=== PATIENT | female | born 1990 | race African-American/Black ===

== ENCOUNTER 2021-10-04 23:57 | Emergency (ER) | payer OTHER ==
[2021-10-05 03:09] LABS: Absolute Lymphocytes (CBC) 1.5 K/uL (0.7-4.9); Basophils % 0.2 % (0-1.3); Hematocrit 24.5 % (36.0-45.0); Lymphocytes % 22.8 % (15.3-44.8); MPV 7.1 fL (7.6-11.3); Protime INR 1.05; RBC Red Blood Cell Count 2.91 M/uL (3.86-4.86)
[2021-10-05 03:40] LABS: ALT/SGPT 38 U/L (12-78); AST/SGOT 31 U/L (15-37); Alkaline Phosphatase 115 U/L (45-117); BUN Blood Urea Nitrogen 10 mg/dL (7-18); Bicarbonate 25 mmol/L (21-32); Bilirubin Direct 0.1 mg/dL (0-0.2); Bilirubin Total 0.3 mg/dL (0.2-1.0); Glucose Level 91 mg/dL (74-106); Magnesium 2.2 mg/dL (1.8-2.4); Potassium 3.7 mmol/L (3.5-5.1); Sodium Level 147 mmol/L (136-145)
[2021-10-05 04:01] LABS: NT PRO-BNP 736 pg/mL (<125); Troponin (Emerg Dept Use Only) < 0.02 ng/mL (0.0-0.045)
[2021-10-05] MEDS ORDERED: ACETAMINOPHEN 500 MG TAB ONE (04:28)
[2021-10-05 04:35] LABS: Urine Blood 2+ (Negative); Urine Glucose Negative (Negative); Urine Protein 1+ (Negative); Urine Specific Gravity >=1.030 (1.005-1.030)
[2021-10-05 04:48] LABS: Urine Specific Gravity/Preg >1.030 (1.005-1.030)
[2021-10-05 05:04] LABS: Urine Bacteria 20-50 /HPF (<20); Urine Mucus 2+ /HPF (NONE SEEN)
[2021-10-05] MEDS ORDERED: HYDRALAZINE HCL 20 MG/ML VIAL ONE ×2 (05:10→06:07)
[2021-10-05] MEDS ORDERED: NIFEdipine 10 MG CAP ONE (06:40)
[2021-10-05] MEDS ORDERED: Magnesium Sulfate 2gm IVPB 2 G/50 ML BAG IV ONE ×3 (06:45→07:55)
--- NOTE | 2021-10-05 07:00 | EDPHYS ---
Physician Documentation [facility] Name: Nanette Copeland Age: 31 yrs Sex: Female : 1990 Arrival Date: 10/05/2021 Time: 00:08 Bed 4 Private MD: ED Physician Dash Landaverde HPI: 10/05 02:37 This 31 yrs old Black Female presents to ER via Ambulatory with complaints of High mh7 Blood Pressure. 02:37 The patient has elevated blood pressure and discovered this at home, with a home device.mh7 02:37 Onset: The symptoms/episode began/occurred 3 day(s) ago. mh7 02:37 Modifying factors: The symptoms are aggravated by Nothing, The symptoms are alleviated mh7 by prescription meds, Labetalol. Associated signs and symptoms: Pertinent negatives: chest pain, dizziness, dyspnea, headache, lightheadedness, nausea, visual changes, vomiting, weakness. Severity of symptoms: At its worst the blood pressure was 180 mm Hg, in the emergency department the blood pressure is improved, moderately. Patient has a history of hypertension. She reports during her her doctor switched her medication to labetalol. She gave about 1 week ago but her blood pressure has been increasing since then. A few days ago her doctor increased her labetalol dose. She has been monitoring her blood pressure at home per her doctors instructions and it was elevated tonight so she called the nurse line and was told to come to the ED for evaluation.. 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 - Social history:: Smoking status: Patient/guardian denies using tobacco. ROS: 02:37 Constitutional: Negative for fever, chills, and weight loss, Eyes: Negative for injury, mh7 pain, redness, and discharge, ENT: Negative for injury, pain, and discharge, Neck: Negative for injury, pain, and swelling, Cardiovascular: Negative for chest pain, palpitations, and edema, Respiratory: Negative for shortness of breath, cough, wheezing, and pleuritic chest pain, Abdomen/GI: Negative for abdominal pain, nausea, vomiting, diarrhea, and constipation, Back: Negative for injury and pain, : Negative for injury, bleeding, discharge, and swelling, MS/Extremity: Negative for injury and deformity, Skin: Negative for injury, rash, and discoloration, Neuro: Negative for headache, weakness, numbness, tingling, and seizure, Psych: Negative for depression, anxiety, suicide ideation, homicidal ideation, and hallucinations, Allergy/Immunology: Negative for hives, rash, and allergies, Endocrine: Negative for neck swelling, polydipsia, polyuria, polyphagia, and marked weight changes, Hematologic/Lymphatic: Negative for swollen nodes, abnormal bleeding, and unusual bruising. Exam: 02:37 Constitutional: This is a well developed, well nourished patient who is awake, alert, mh7 and in no acute distress. Head/Face: Normocephalic, atraumatic. Eyes: Pupils equal round and reactive to light, extra-ocular motions intact. Lids and lashes normal. Conjunctiva and sclera are non-icteric and not injected. Cornea within normal limits. Periorbital areas with no swelling, redness, or edema. Neck: Trachea midline, no thyromegaly or masses palpated, and no cervical lymphadenopathy. Supple, full range of motion without nuchal rigidity, or vertebral point tenderness. No Meningismus. Chest/axilla: Normal chest wall appearance and motion. Nontender with no deformity. No lesions are appreciated. Cardiovascular: Regular rate and rhythm with a normal S1 and S2. No gallops, murmurs, or rubs. Normal PMI, no JVD. No pulse deficits. Respiratory: Lungs have equal breath sounds bilaterally, clear to auscultation and percussion. No rales, rhonchi or wheezes noted. No increased work of breathing, no retractions or nasal flaring. Abdomen/GI: Soft, non-tender, with normal bowel sounds. No distension or tympany. No guarding or rebound. No evidence of tenderness throughout. Back: No spinal tenderness. No costovertebral tenderness. Full range of motion. Skin: Warm, dry with normal turgor. Normal color with no rashes, no lesions, and no evidence of cellulitis. MS/ Extremity: Pulses equal, no cyanosis. Neurovascular intact. Full, normal range of motion. Neuro: Awake and alert, GCS 15, oriented to person, place, time, and situation. Cranial nerves II-XII grossly intact. Motor strength 5/5 in all extremities. Sensory grossly intact. Cerebellar exam normal. Normal gait. Psych: Awake, alert, with orientation to person, place and time. Behavior, mood, and affect are within normal limits. Vital Signs: 00:10 BP 161 / 109; Pulse 54; Resp 18; Temp 97.9; Pulse Ox 100% on R/A; Weight 112.49 kg (R); aj1 Height 5 ft. 7 in. (170.18 cm) (R); Pain 2/10; 02:33 BP 152 / 89; Pulse 57; em 04:13 BP 174 / 88; Pulse 55; Resp 18; Pulse Ox 99% on R/A; em 05:24 BP 164 / 87; Pulse 56; Resp 16; Pulse Ox 99% on R/A; em 06:19 BP 151 / 74; Pulse 79; Resp 18; Pulse Ox 100% on R/A; em 07:00 BP 136 / 79; Pulse 71; Resp 15; Pulse Ox 100% ; jl7 07:30 BP 137 / 81; Pulse 76; Resp 15; Pulse Ox 100% ; jl7 08:00 BP 149 / 95; Pulse 88; Resp 16; Pulse Ox 100% ; jl7 00:10 Body Mass Index 38.84 (112.49 kg, 170.18 cm) aj1 MDM: 06:56 Differential diagnosis: hypertensive crisis, Malignant HTN, preeclampsia, mh7 hypertension. Data reviewed: vital signs, nurses notes, lab test result(s), CBC, electrolytes, urinalysis, EKG, radiologic studies, plain films. Data interpreted: Pulse oximetry: on room air is 100 %. Interpretation: normal. Counseling: I had a detailed discussion with the patient and/or guardian regarding: the historical points, exam findings, and any diagnostic results supporting the discharge/admit diagnosis, the presence of at least one elevated blood pressure reading (>120/80) during this emergency department visit, lab results, radiology results, the need to transfer to another facility, Patient preference for continuity of care. Response to treatment: the patient's symptoms have mildly improved after treatment. 06:59 Patient medically screened. [facility] 10/05 02:35 Order name: Basic Metabolic Panel; Complete Time: 04:44 [facility] 10/05 02:35 Order name: CBC with Diff; Complete Time: 04:44 [facility] 10/05 02:35 Order name: LFT's; Complete Time: 04:11 [facility] 10/05 02:35 Order name: Magnesium; Complete Time: 04:44 [facility] 10/05 02:35 Order name: NT PRO-BNP; Complete Time: 04:44 [facility] 10/05 02:35 Order name: PT-INR; Complete Time: 04:44 [facility] 10/05 02:35 Order name: Troponin (emerg Dept Use Only); Complete Time: 04:44 [facility] 10/05 04:35 Order name: Urine Dipstick-Ancillary; Complete Time: 04:44 [facility] 10/05 04:36 Order name: Urine --Ancillary (enter results); Complete Time: 05:06 10/05 04:39 Order name: Urine Microscopic Only 10/05 04:40 Order name: Urine Microscopic Only; Complete Time: 05:06 [facility] 10/05 05:05 Order name: Urine Culture [facility] 10/05 07:00 Order name: SARS-COV-2 RT PCR [facility] 10/05 02:35 Order name: XRAY Chest (1 view) [facility] 10/05 02:35 Order name: EKG; Complete Time: 02:36 [facility] 10/05 02:35 Order name: Cardiac monitoring; Complete Time: 03:03 [facility] 10/05 02:35 Order name: EKG - Nurse/Tech; Complete Time: 03:03 [facility] 10/05 02:35 Order name: IV Saline Lock; Complete Time: 03:03 [facility] 10/05 02:35 Order name: Labs collected and sent; Complete Time: 03:03 [facility] 10/05 02:35 Order name: O2 Per Protocol; Complete Time: 03:03 [facility] 10/05 02:35 Order name: O2 Sat Monitoring; Complete Time: 03:03 [facility] 10/05 02:35 Order name: Urine Dipstick-Ancillary (obtain specimen); Complete Time: 04:37 [facility] Administered Medications: 04:28 Drug: Tylenol 1000 mg Route: PO; em 05:54 Follow up: Response: No adverse reaction em 05:24 Drug: hydrALAZINE 5 mg Route: IVP; Site: right antecubital; em 06:00 Follow up: Response: No adverse reaction em 06:13 Drug: hydrALAZINE 5 mg Route: IVP; Site: right antecubital; em 06:39 Follow up: Response: No adverse reaction em 06:51 Drug: Magnesium Sulfate 2 grams Route: IVPB; Infused Over: 2 hrs; Site: right em antecubital; 07:58 Follow up: Response: No adverse reaction; IV Status: Completed infusion ll3 07:57 Drug: Magnesium Sulfate 2 grams Route: IVPB; Infused Over: 2 hrs; Site: right ll3 antecubital; 08:21 Follow up: IV Status: Infusion continued upon transfer jl7 07:58 Not Given (Patient Refused): Procardia (NIFEdipine) 30 mg PO once ll3 07:58 Drug: Magnesium Sulfate 2 grams Route: IVPB; Infused Over: 2 hrs; Site: right ll3 antecubital; 08:22 Follow up: IV Status: Infusion continued upon transfer jl7 Disposition Summary: 10/05/21 06:59 Transfer Ordered Transfer [facility]: [facility] Reason: Higher level of care 7 Condition: Stable [facility] Problem: an ongoing problem [facility] Symptoms: have improved mh7 Accepting Physician: Dr. Pierson(10/05/21 08:21) jl7 Diagnosis - preeclampsia [facility] Forms: - Medication Reconciliation Form 7 - SBAR form 7 Signatures: Dispatcher [employer] EDJuli Zurita RN RN aj1 Boston Dexter RN RN em Altaf Carballo, ENTRY LEVEL TRUCK DRIVER-C ENTRY LEVEL TRUCK DRIVER-Cla1 Soni Palafox RN RN jl7 Dash Landaverde MD MD 7 Lilibeth Sims RN RN ll3 Corrections: (The following items were deleted from the chart) 07:00 06:05 CORONAVIRUS+MR.LAB.BRZ ordered. EDKS EDKS 08:21 06:59 Dr. Pierson 7 jl7
--- NOTE | 2021-10-05 07:00 | ER ---
Nurse's Notes [facility] Name: Nanette Copeland Age: 31 yrs Sex: Female : 1990 Arrival Date: 10/05/2021 Time: 00:08 Bed 4 Private MD: Diagnosis: preeclampsia Presentation: 10/05 00:10 Chief complaint: Patient states: "I gave a week ago and my blood pressure have aj1 been rising since I've been discharged and I spoke to my OB on Wednesday and she had my increase the dosage of the blood pressure medicine I've been taking and its still rising so I called the nurse who was firefighter type one and she told me to come to the ER" Patient states that her OB is Dr. Roz Pierson. Coronavirus screen: Vaccine status: Patient reports receiving the 2nd dose of the covid vaccine. Ebola Screen: Patient denies travel to an Ebola-affected area in the 21 days before illness onset. Initial Sepsis Screen: Does the patient meet any 2 criteria? No. Patient's initial sepsis screen is negative. Does the patient have a suspected source of infection? No. Patient's initial sepsis screen is negative. Risk Assessment: Do you want to hurt yourself or someone else? Patient reports no desire to harm self or others. Onset of symptoms was 2020. 00:10 Method Of Arrival: Ambulatory aj1 00:10 Acuity: ELLIOTT 3 aj1 Triage Assessment: 00:12 General: Appears in no apparent distress. comfortable, Behavior is calm, cooperative, aj1 appropriate for age. Pain: Complains of pain in face Pain currently is 2 out of 10 on a pain scale. Quality of pain is described as aching. Neuro: Level of Consciousness is awake, alert, obeys commands, Oriented to person, place, time, situation. Cardiovascular: Patient's skin is warm and dry. Respiratory: Airway is patent Respiratory effort is even, unlabored, Respiratory pattern is regular, symmetrical. Derm: Skin is pink, warm \\T\\ dry. normal. 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 - Social history:: Smoking status: Patient/guardian denies using tobacco. Screenin:16 Abuse screen: Denies threats or abuse. Nutritional screening: No deficits noted. em Tuberculosis screening: No symptoms or risk factors identified. Fall Risk None identified. Assessment: 03:03 General: Appears in no apparent distress. comfortable, Behavior is calm, cooperative. em Pain: Complains of pain in head. Neuro: Level of Consciousness is awake, alert, obeys commands, Oriented to person, place, time, situation. Cardiovascular: Denies chest pain, shortness of breath, Capillary refill < 3 seconds Patient's skin is warm and dry. Rhythm is sinus rhythm. Respiratory: Airway is patent Respiratory effort is even, unlabored, Respiratory pattern is regular, symmetrical. Derm: Skin is intact, is healthy with good turgor, Skin is pink, warm \\T\\ dry. Musculoskeletal: Capillary refill < 3 seconds, Range of motion: intact in all extremities. 04:12 Reassessment: Patient appears in no apparent distress at this time. Patient and/or em family updated on plan of care and expected duration. Pain level reassessed. Patient is alert, oriented x 3, equal unlabored respirations, skin warm/dry/pink. 04:25 Reassessment: pt reports having a headache, Dr. Landaverde notified, received VO for em Tylenol PO 1 G x 1. 07:00 Reassessment: Patient appears in no apparent distress at this time. Patient and/or jl7 family updated on plan of care and expected duration. Pain level reassessed. Patient is alert, oriented x 3, equal unlabored respirations, skin warm/dry/pink. 07:41 Reassessment: Report given to CJ Lynn at [facility]. 08:18 Reassessment: [facility] at bedside to transport pt to [facility]. jl7 Vital Signs: 00:10 BP 161 / 109; Pulse 54; Resp 18; Temp 97.9; Pulse Ox 100% on R/A; Weight 112.49 kg (R); aj1 Height 5 ft. 7 in. (170.18 cm) (R); Pain 2/10; 02:33 BP 152 / 89; Pulse 57; em 04:13 BP 174 / 88; Pulse 55; Resp 18; Pulse Ox 99% on R/A; em 05:24 BP 164 / 87; Pulse 56; Resp 16; Pulse Ox 99% on R/A; em 06:19 BP 151 / 74; Pulse 79; Resp 18; Pulse Ox 100% on R/A; em 07:00 BP 136 / 79; Pulse 71; Resp 15; Pulse Ox 100% ; jl7 07:30 BP 137 / 81; Pulse 76; Resp 15; Pulse Ox 100% ; jl7 08:00 BP 149 / 95; Pulse 88; Resp 16; Pulse Ox 100% ; jl7 00:10 Body Mass Index 38.84 (112.49 kg, 170.18 cm) aj1 ED Course: 00:08 Patient arrived in ED. 00:12 Triage completed. aj1 00:12 Arm band placed on Patient placed in waiting room. aj1 02:12 Boston Dexter, RN is Primary Nurse. em 02:16 Dash Landaverde MD is Attending Physician. [facility] 02:16 Patient has correct armband on for positive identification. Adult w/ patient. em 03:00 Initial lab(s) drawn, by me, sent to lab. Inserted saline lock: 22 gauge in right em antecubital area, using aseptic technique. Blood collected. 03:07 XRAY Chest (1 view) In Process Unspecified. EDMS 04:37 Urine collected: clean catch specimen, clear. em 05:59 initiated a transfer with Janette Olivarez from [facility] Transfer Center. mw2 06:17 [facility] denied due to capacity. mw2 06:[address] Paez [phone] the patient's OB doctor, left a voicemail awaiting a call mw2 back. 06:[address] Landaverde with Dr. Paez. mw2 06:36 initiated a transfer with Mouna from [facility] Transfer Center. mw2 06:42 Mouna got disconnected. mw2 06:43 initiated a transfer with Anuradha Broderick from [facility] Transfer Center. mw2 08:20 No provider procedures requiring assistance completed. Patient transferred, IV remains jl7 in place. intact, No redness/swelling at site. Administered Medications: 04:28 Drug: Tylenol 1000 mg Route: PO; em 05:54 Follow up: Response: No adverse reaction em 05:24 Drug: hydrALAZINE 5 mg Route: IVP; Site: right antecubital; em 06:00 Follow up: Response: No adverse reaction em 06:13 Drug: hydrALAZINE 5 mg Route: IVP; Site: right antecubital; em 06:39 Follow up: Response: No adverse reaction em 06:51 Drug: Magnesium Sulfate 2 grams Route: IVPB; Infused Over: 2 hrs; Site: right em antecubital; 07:58 Follow up: Response: No adverse reaction; IV Status: Completed infusion ll3 07:57 Drug: Magnesium Sulfate 2 grams Route: IVPB; Infused Over: 2 hrs; Site: right ll3 antecubital; 08:21 Follow up: IV Status: Infusion continued upon transfer jl7 07:58 Not Given (Patient Refused): Procardia (NIFEdipine) 30 mg PO once ll3 07:58 Drug: Magnesium Sulfate 2 grams Route: IVPB; Infused Over: 2 hrs; Site: right ll3 antecubital; 08:22 Follow up: IV Status: Infusion continued upon transfer jl7 Outcome: 06:59 ER care complete, transfer ordered by [facility] 08:20 Transferred by ground EMS to other acute care facility: [facility]. [facility] 08:20 Condition: stable 08:20 Discharge instructions given to patient, family, Instructed on the need for transfer, Demonstrated understanding of instructions. 08:21 Patient left the ED. jl7 Signatures: Dispatcher [employer] Juli Hester RN RN aj1 Boston Dexter RN RN Kaylynn Yeboah RN RN ss Leal, Jahala, RN RN 7 Meeta Jones 2 Dash Landaverde MD MD 7 Alesia Cherry Lynsea, RN RN ll3
--- NOTE | 2021-10-05 08:22 | RAD REPORT ---
EXAM DESCRIPTION: RAD - Chest Single View - 10/05/2021 3:07 am CLINICAL HISTORY: Hypertensive COMPARISON: None TECHNIQUE: AP portable chest image was obtained 10/05/2021 3:07 am . FINDINGS: Lungs are clear. Heart and vasculature are normal. No measurable pleural effusion and no p neumothorax. No acute bony abnormality seen. No acute aortic findings suspected. IMPRESSION: No acute cardiopulmonary process.
[2021-10-05 08:51] VITALS: TEMP 97.9
[2021-10-05 08:55] VITALS: O2SAT 100
[2021-10-05 09:00] VITALS: BP 149/95
--- NOTE | 2021-10-08 08:14 | EKG ---
Test Date: 2021-10-05 Test Time: 02:43:57 Marine Equipment Engineer: BRONSON MEASUREMENT RESULTS: Intervals: Rate: 63 [place]: 158 QRSD: 80 QT: 410 QTc: 419 [place]: P: 8 AZ: 158 QRS: 4 T: 35 INTERPRETIVE STATEMENTS: Normal sinus rhythm Normal ECG No previous ECG available for comparison Electronically Signed On 10-08-21 08:04:24 END STAPLER by Steve Ladd
== END 2021-10-05 08:21 ==
LOC: ER 23:57
DX: O14.95 Unspecified pre-eclampsia, complicating the puerperium (principal); Z88.2 Allergy status to sulfonamides; Z20.822 Contact with and (suspected) exposure to COVID-19
CPT/HCPCS: 96365; 93005; 87088; 85025; 87086; 80048; 36415; 83735; 81025; 85610; 80076; 84484; 83880; 71045; 96375; 99285; 96366; U0003; J0360 ×2; J3475 ×3; 81003; 81015